=== PATIENT | female | born 1975 | race Caucasian/White ===

== ENCOUNTER 2019-09-19 19:15 | Emergency (ER) | payer MEDICAID ==
[~2019-09-19] VITALS: Ht 157.5 cm; Wt 108.9 kg
[2019-09-19 19:20] VITALS: BP_SYST 134
== END 2019-09-19 20:37 | disposition left against medical advice (07) ==
LOC: SED 19:15
DX: R00.2 Palpitations (principal); Z53.21 Procedure and treatment not carried out due to patient leaving prior to being seen by health care provider
CPT/HCPCS: 93005